=== PATIENT | male | born 1985 | race Caucasian/White ===

== ENCOUNTER 2018-11-14 12:38 | Emergency (ER) | payer SELFPAY ==
[~2018-11-14] VITALS: Ht 180.3 cm; Wt 80.9 kg
[2018-11-14 12:44] VITALS: Ht 180.3 cm; Wt 80.9 kg
[2018-11-14 13:47] LABS: BASOPHILS 0.3 % (0-2); EOSINOPHILS 3.2 % (0-7); HEMATOCRIT 42.5 % (42.0-54.0); HEMOGLOBIN 14.1 g/dL (13.5-17.5); IMMATURE GRANULOCYTES 0.3 % (0-5); LYMPHOCYTES 26.8 % (15-50); MCHC 33.2 g/dL (31.0-37.0); MCV 96.4 fL (80.0-100.0); MEAN PLATELET VOLUME 9.5 fL (7.4-10.4); MONOCYTES 10.6 % (2-11); NEUTROPHILS 58.8 % (40-80); RBC 4.41 10x6/uL (4.20-6.10); RDW 12.1 % (11.5-14.5); WBC 7.6 10x3/uL (4.8-10.8)
[2018-11-14 13:50] LABS: PLATELET COUNT 199 10x3/uL (130-400)
[2018-11-14 13:53] LABS: APTT 30.1 SECONDS (22.8-39.4); INR 1.03 (0.85-1.17)
[2018-11-14 13:58] LABS: ALBUMIN 3.6 g/dL (3.4-5.0); ALKALINE PHOSPHATASE 87 U/L (46-116); ALT (SGPT) 38 U/L (10-68); BILIRUBIN - TOTAL 0.74 mg/dL (0.2-1.3); CALC OSMOLALITY 281 mosm/kg (275-300); CALCIUM 8.7 mg/dL (8.5-10.1); CARBON DIOXIDE 29.1 mmol/L (21.0-32.0); CHLORIDE - SERUM 104 mmol/L (98-107); CREATININE - SERUM 0.9 mg/dL (0.6-1.3); GLUCOSE 89 mg/dL (74-106); POTASSIUM - SERUM 4.4 mmol/L (3.5-5.1); PROTEIN - SERUM 7.4 g/dL (6.4-8.2); SODIUM 142 mmol/L (136-145); UREA NITROGEN 12 mg/dL (7-18); eGFR NON AFRICAN AMERICAN > 90 mL/min (90-120)
[2018-11-14 14:08] LABS: AMYLASE - SERUM 32 U/L (25-115); CKMB 1.3 U/L (0.0-3.6); CREATINE KINASE 233 UL (21-232); LIPASE 69 U/L (73-393); TROPONIN-I < 0.017 ng/mL (0.000-0.060)
[2018-11-14] MEDS ORDERED: PEPCID40 MG PO (14:29)
[2018-11-14 14:46] VITALS: BP 134/86
== END 2018-11-14 14:38 | disposition home or self-care (01) ==
LOC: D.ER 12:38
PROVIDERS: Family Medicine
DX: R07.9 Chest pain, unspecified (principal)